=== PATIENT | female | born 1990 | race Caucasian/White ===

== ENCOUNTER → 2023-06-27 06:51 | Outpatient (REF) | payer OTHER, SELFPAY | LOC: PNTC 06:51 | PROVIDERS: ATTENDING PHYSICIAN Obstetrics & Gynecology | DX: Z36.0 Encounter for antenatal screening for chromosomal anomalies (principal); Z36.82 Encounter for antenatal screening for nuchal translucency | CPT/HCPCS: 36415; 76801; 76813 ==

== ENCOUNTER → 2023-07-23 07:01 | Outpatient (REF) | payer OTHER, SELFPAY | LOC: PNTC 07:01 | PROVIDERS: ATTENDING PHYSICIAN Obstetrics & Gynecology | DX: Z36.0 Encounter for antenatal screening for chromosomal anomalies (principal) | CPT/HCPCS: 36415 ==

== ENCOUNTER → 2023-08-15 09:19 | Outpatient (REF) | payer OTHER, SELFPAY ==
--- NOTE | 2023-08-15 09:53 | PN.DIAED06 ---
Meal Plan - Gestational
- Breakfast
Gestational Diabetes Meal Plan Name: 1800 calories
Breakfast - Total Carbohydrate (grams): 30
Breakfast - Starch Carbohydrate: 1
Breakfast - Fruit Carbohydrate: 0
Breakfast - Milk Carbohydrate: 1
Breakfast - Nonstarchy Vegetables: Yes
Breakfast - Meat/Protein: 1
Breakfast - Fat: 2
- Morning Snack
Morning Snack - Total Carbohydrate (grams): 30
Morning Snack - Starch Carbohydrate: 1
Morning Snack - Fruit Carbohydrate: 0
Morning Snack - Milk Carbohydrate: 1
Morning Snack - Nonstarchy Vegetables: Yes
Morning Snack - Meat/Protein: 0.5
Morning Snack - Fat: 0
- Lunch
Lunch - Total Carbohydrate (grams): 45
Lunch - Starch Carbohydrate: 2
Lunch - Fruit Carbohydrate: 1
Lunch - Milk Carbohydrate: 0
Lunch - Nonstarchy Vegetables: Yes
Lunch - Meat/Protein: 2
Lunch - Fat: 1
- Afternoon Snack
Afternoon Snack - Total Carbohydrate (grams): 30
Afternoon Snack - Starch Carbohydrate: 1
Afternoon Snack - Fruit Carbohydrate: 1
Afternoon Snack - Milk Carbohydrate: 0
Afternoon Snack - Nonstarchy Vegetables: Yes
Afternoon Snack - Meat/Protein: 1
Afternoon Snack - Fat: 0
- Dinner
Dinner - Total Carbohydrate (grams): 45
Dinner - Starch Carbohydrate: 2
Dinner - Fruit Carbohydrate: 0
Dinner - Milk Carbohydrate: 1
Dinner - Nonstarchy Vegetables: Yes
Dinner - Meat/Protein: 2
Dinner - Fat: 2
- Evening Snack
Evening Snack - Total Carbohydrate (grams): 30
Evening Snack - Starch Carbohydrate: 1
Evening Snack - Fruit Carbohydrate: 0
Evening Snack - Milk Carbohydrate: 1
Evening Snack - Nonstarchy Vegetables: Yes
Evening Snack - Meat/Protein: 1
Evening Snack - Fat: 1
--- NOTE | 2023-08-15 10:34 | PN.DIAED02 ---
Referral
Referred For: Gestational Diabetes Self-Management Training
PHI Release Authorization Form Signed: Yes
Care Plan
- Education Needs
Patient Education Needs: Preconception care//gestational diabetes management
Recommended Diabetes Training Program based on assessment: Gestational Diabetes Management
- Plan of Care
Plan of Care:
, EDC [birth year] sex unknown. 9 yr old son,7 yr old daughter, 4 year old daughter and 2 year old son at home. Carolyn with hx GDM with her 2 yr old son. She states she did not receive previous education.She has been having a difficult
with N/V and declined the OGTT. Discussed what is happening in her body and the importance to keep blood sugars well controlled to avoid complications (macrosomia,hypoglycemia. Here today for glucometer and nutritional instructions. Provided
with and instructions given on the One Touch Verio Flex glucometer, good return demonstration with result of 76 mg/dl 2 hr PP. She is aware of proper testing technique, to rotate sites and expected results. To test FBS (with result <95 mg/dl) and 2
hr PP every meal (with result <120 mg/dl). She will call her number into [facility] every Saturday- phone number and log sheet provided. Discussed macronutrients and effect each plays in glucose metabolism. Discussed reading
nutritional fact labels. 5' 110# pre . Provided with 1600 ernesto GDM menu (1800 ernesto-200 ernesto: lunch and dinner CHO allotment reduced to 30 gm (from 45 gm) and evening snack reduced from 30 gm to 15 gm. She is having sensitivity to food smells,
certain foods giving reflux and still with episodes of emesis. Aware to consume protein with meals/snacks.Breakfast consists of 2 good yogurt(vanilla) with either some cereal or pancake. Lunch may be a PB and J sandwich, tortilla chips w/taco
meat,cheese, dinner is currently a smoothie made w/fruit, almond mild and 2 good yogurt. She is not able to tolerate the meals that her family are eating. For now, chicken is agreeable. Snacks are generally nuts, cheese, cran-raisins,hummus and
edamame. Will add fruit after noon time. Discussed importance of exercise, she will try to incorporate into her busy day. 'Choose your foods' booklet, handout on snack options and foods high in calcium (she does not drink milk) given for reference.
Phone number provided for follow up questions. HIEU Pena to send RX to [facility] for test strips and lancet supplies.
== END ==
LOC: DES 09:19
PROVIDERS: ATTENDING PHYSICIAN Advanced Practice Midwife
DX: O24.419 Gestational diabetes mellitus in pregnancy, unspecified control (principal)
CPT/HCPCS: 99078

== ENCOUNTER → 2023-08-21 09:18 | Outpatient (REF) | payer OTHER, SELFPAY | LOC: PNTC 09:18 | PROVIDERS: ATTENDING PHYSICIAN Obstetrics & Gynecology | DX: O99.355 Diseases of the nervous system complicating the puerperium (principal) | CPT/HCPCS: 76811 ==

== ENCOUNTER → 2023-09-30 06:53 | Outpatient (REF) | payer OTHER, SELFPAY | LOC: PNTC 06:53 | PROVIDERS: ATTENDING PHYSICIAN Advanced Practice Midwife | DX: O24.419 Gestational diabetes mellitus in pregnancy, unspecified control (principal); O09.519 Supervision of elderly primigravida, unspecified trimester; O09.529 Supervision of elderly multigravida, unspecified trimester; Z36.0 Encounter for antenatal screening for chromosomal anomalies | CPT/HCPCS: 76816 ==

== ENCOUNTER → 2023-10-28 16:18 | Outpatient (REF) | payer OTHER, SELFPAY | LOC: PNTC 16:18 | PROVIDERS: ATTENDING PHYSICIAN Advanced Practice Midwife | DX: O09.519 Supervision of elderly primigravida, unspecified trimester (principal); O09.529 Supervision of elderly multigravida, unspecified trimester; Z36.0 Encounter for antenatal screening for chromosomal anomalies; O24.419 Gestational diabetes mellitus in pregnancy, unspecified control | CPT/HCPCS: 76816 ==

== ENCOUNTER → 2023-11-12 15:50 | Outpatient (REF) | payer OTHER, SELFPAY | LOC: PNTC 15:50 | PROVIDERS: ATTENDING PHYSICIAN Advanced Practice Midwife | DX: O09.519 Supervision of elderly primigravida, unspecified trimester (principal); O09.529 Supervision of elderly multigravida, unspecified trimester; Z36.0 Encounter for antenatal screening for chromosomal anomalies; O24.419 Gestational diabetes mellitus in pregnancy, unspecified control | CPT/HCPCS: 59025; 76815 ==

== ENCOUNTER → 2023-11-18 15:59 | Outpatient (REF) | payer OTHER, SELFPAY | LOC: PNTC 15:59 | PROVIDERS: ATTENDING PHYSICIAN Advanced Practice Midwife | DX: O09.519 Supervision of elderly primigravida, unspecified trimester (principal); O09.529 Supervision of elderly multigravida, unspecified trimester; Z36.0 Encounter for antenatal screening for chromosomal anomalies; O24.419 Gestational diabetes mellitus in pregnancy, unspecified control | CPT/HCPCS: 59025 ==

== ENCOUNTER → 2023-11-18 17:02 | Outpatient (REF) | payer OTHER, SELFPAY | LOC: REG 17:02 | PROVIDERS: ATTENDING PHYSICIAN Advanced Practice Midwife; FAMILY PHYSICIAN Internal Medicine | DX: O09.43 Supervision of pregnancy with grand multiparity, third trimester (principal) | CPT/HCPCS: 36415; 86850; 86870; 86900; 86901; J2790 ==

== ENCOUNTER → 2023-11-26 15:52 | Outpatient (REF) | payer OTHER, SELFPAY | LOC: PNTC 15:52 | PROVIDERS: ATTENDING PHYSICIAN Advanced Practice Midwife | DX: O09.519 Supervision of elderly primigravida, unspecified trimester (principal); O09.529 Supervision of elderly multigravida, unspecified trimester; Z36.0 Encounter for antenatal screening for chromosomal anomalies; O24.419 Gestational diabetes mellitus in pregnancy, unspecified control | CPT/HCPCS: 59025; 76816 ==

== ENCOUNTER → 2023-12-04 16:01 | Outpatient (REF) | payer OTHER, SELFPAY | LOC: PNTC 16:01 | PROVIDERS: ATTENDING PHYSICIAN Advanced Practice Midwife | DX: O09.519 Supervision of elderly primigravida, unspecified trimester (principal); O09.529 Supervision of elderly multigravida, unspecified trimester; Z36.0 Encounter for antenatal screening for chromosomal anomalies; O24.419 Gestational diabetes mellitus in pregnancy, unspecified control | CPT/HCPCS: 59025; 76815 ==

== ENCOUNTER → 2023-12-11 16:04 | Outpatient (REF) | payer OTHER, SELFPAY | LOC: PNTC 16:04 | PROVIDERS: ATTENDING PHYSICIAN Advanced Practice Midwife | DX: O09.519 Supervision of elderly primigravida, unspecified trimester (principal); O09.529 Supervision of elderly multigravida, unspecified trimester; Z36.0 Encounter for antenatal screening for chromosomal anomalies; O24.419 Gestational diabetes mellitus in pregnancy, unspecified control | CPT/HCPCS: 59025; 76815 ==

== ENCOUNTER → 2023-12-17 16:02 | Outpatient (REF) | payer OTHER, SELFPAY | LOC: PNTC 16:02 | PROVIDERS: ATTENDING PHYSICIAN Advanced Practice Midwife | DX: O09.519 Supervision of elderly primigravida, unspecified trimester (principal); O09.529 Supervision of elderly multigravida, unspecified trimester; O24.419 Gestational diabetes mellitus in pregnancy, unspecified control | CPT/HCPCS: 59025; 76815 ==

== ENCOUNTER → 2023-12-24 15:39 | Outpatient (REF) | payer OTHER, SELFPAY | LOC: PNTC 15:39 | PROVIDERS: ATTENDING PHYSICIAN Advanced Practice Midwife | DX: O09.519 Supervision of elderly primigravida, unspecified trimester (principal); O09.529 Supervision of elderly multigravida, unspecified trimester; Z36.0 Encounter for antenatal screening for chromosomal anomalies; O24.419 Gestational diabetes mellitus in pregnancy, unspecified control | CPT/HCPCS: 59025; 76816 ==

== ENCOUNTER → 2023-12-31 15:58 | Outpatient (REF) | payer OTHER, SELFPAY | LOC: PNTC 15:58 | PROVIDERS: ATTENDING PHYSICIAN Advanced Practice Midwife | DX: O09.519 Supervision of elderly primigravida, unspecified trimester (principal); O09.529 Supervision of elderly multigravida, unspecified trimester; Z36.0 Encounter for antenatal screening for chromosomal anomalies; O24.419 Gestational diabetes mellitus in pregnancy, unspecified control | CPT/HCPCS: 59025; 76815 ==

== ENCOUNTER → 2024-01-07 16:04 | Outpatient (REF) | payer OTHER, SELFPAY | LOC: PNTC 16:04 | PROVIDERS: ATTENDING PHYSICIAN Advanced Practice Midwife | DX: O09.519 Supervision of elderly primigravida, unspecified trimester (principal); O09.529 Supervision of elderly multigravida, unspecified trimester; Z36.0 Encounter for antenatal screening for chromosomal anomalies; O24.419 Gestational diabetes mellitus in pregnancy, unspecified control | CPT/HCPCS: 59025; 76815 ==

== ENCOUNTER 2024-01-08 06:13 | Inpatient (IN) | payer OTHER, SELFPAY ==
[2024-01-08 06:22] VITALS: BMI 21.5
[2024-01-08] MEDS: LR 1000 IV ×2 (07:37→08:24)
[2024-01-08 07:39] VITALS: BP 114/75
[2024-01-08 07:43] LABS: % Basophils 0.2 % (0-2); % Eosinophils 0.3 % (0-6); % Immature Granulocytes 0.8 % (0-0.5); % Lymphocytes 14.9 % (20.5-51.1); % Monocytes 5.8 % (1.7-9.3); Absolute Immature Granulocytes 0.1 10^3/uL (0-0.05); Absolute Lymphocytes 1.3 10^3/uL (1.2-3.4); Absolute Monocytes 0.5 10^3/uL (0.1-0.6); Absolute Neutrophils 6.7 10^3/uL (1.4-6.5); Hematocrit 31.1 % (37.0-47.0); Hemoglobin 10.9 g/dL (12.0-16.0); Mean Corpuscular Hgb 28.3 pg (27.0-31.0); Mean Corpuscular Volume 80.8 fL (81.0-99.0); Mean Platelet Volume 11.9 fL (7.4-10.4); Nucleated Red Blood Cells % 0 %; Platelet Count 151 10^3/uL (130-400); Red Blood Cell Count 3.85 10^6/uL (4.20-5.40); Red Cell Dist. Width 14.2 % (11.5-14.5); White Blood Cell Count 8.6 10^3/uL (4.8-10.8)
[2024-01-08] MEDS: PENICILLIN 110 UNITS IV (07:45)
[2024-01-08] MEDS: SUBLIMAZE 100 MCG EPIDURAL (07:54)
[2024-01-08] MEDS: FENTANYL/BUPIVACAINE 100 EPIDURAL (07:55)
[2024-01-08] MEDS: PITOCIN 30 UNITS/NSS 500 ML IV (08:50)
[2024-01-08] MEDS: MOTRIN 600 MG PO ×2 (14:50→20:50)
[2024-01-09] MEDS: MOTRIN 600 MG PO ×2 (04:41→11:56)
[2024-01-09 05:32] LABS: Hematocrit 31.1 % (37.0-47.0); Hemoglobin 10.5 g/dL (12.0-16.0)
[2024-01-09] MEDS: RHOGAM 300 MCG IM (11:39)
[2024-01-09] MEDS: SENOKOT-S 1 TABLET PO (11:57)
== END 2024-01-09 12:45 | disposition home or self-care (01) | DRG 807 ==
LOC: LDRP 06:13
PROVIDERS: ADMITTING PHYSICIAN Advanced Practice Midwife
PROC: 10E0XZZ Delivery of Products of Conception, External Approach (ICD-10-PCS; 2024-01-08)
DX: O48.0 Post-term pregnancy (principal); Z37.0 Single live birth; O99.284 Endocrine, nutritional and metabolic diseases complicating childbirth; E28.2 Polycystic ovarian syndrome; O99.824 Streptococcus B carrier state complicating childbirth; Z3A.40 40 weeks gestation of pregnancy; O77.0 Labor and delivery complicated by meconium in amniotic fluid
CPT/HCPCS: 85014; 85018; 85025; 85461; 86780; 86850; 86870; 86900; 86901; J2790

== ENCOUNTER 2025-04-14 16:00 | Observation (INO) | payer OTHER, SELFPAY ==
[2025-04-14 13:12] VITALS: BP 118/78
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
[2025-04-14 15:19] VITALS: BP 109/71; BMI 26.0
[2025-04-14 16:41] LABS: INR 1.11; PT 14.1 Sec (11.4-14.6)
[2025-04-14 16:42] LABS: APTT 24.8 Sec (23.4-35.0); Fibrinogen 397 MG/DL (199-459)
[2025-04-14 19:00] VITALS: BP 109/71
== END 2025-04-14 19:23 | disposition home or self-care (01) ==
LOC: LDRP 16:00
PROVIDERS: ADMITTING PHYSICIAN Advanced Practice Midwife; EMERGENCY PHYSICIAN Emergency Medicine
DX: O26.892 Other specified pregnancy related conditions, second trimester (principal); R10.9 Unspecified abdominal pain; V43.52XA Car driver injured in collision with other type car in traffic accident, initial encounter; Y93.89 Activity, other specified; Y92.410 Unspecified street and highway as the place of occurrence of the external cause; Z3A.26 26 weeks gestation of pregnancy; S39.91XA Unspecified injury of abdomen, initial encounter; J45.909 Unspecified asthma, uncomplicated; F31.9 Bipolar disorder, unspecified; O99.342 Other mental disorders complicating pregnancy, second trimester; O99.512 Diseases of the respiratory system complicating pregnancy, second trimester; R07.9 Chest pain, unspecified; R00.0 Tachycardia, unspecified; Z04.1 Encounter for examination and observation following transport accident; Z86.718 Personal history of other venous thrombosis and embolism; Z82.49 Family history of ischemic heart disease and other diseases of the circulatory system; Z88.0 Allergy status to penicillin
CPT/HCPCS: 85384; 85460; 85610; 85730; 93005; 99285; G0378

== ENCOUNTER 2025-04-16 22:48 | Emergency (ER) | payer SELFPAY ==
[2025-04-16 22:55] VITALS: BP 155/68
[2025-04-17 00:09] VITALS: BP 105/69
[2025-04-17 01:00] VITALS: BP 107/64
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
== END 2025-04-17 01:42 | disposition home or self-care (01) ==
LOC: EMR 22:48
PROVIDERS: EMERGENCY PHYSICIAN Emergency Medicine; FAMILY PHYSICIAN Internal Medicine
DX: O99.891 Other specified diseases and conditions complicating pregnancy (principal); S29.011A Strain of muscle and tendon of front wall of thorax, initial encounter; V43.52XA Car driver injured in collision with other type car in traffic accident, initial encounter; Y92.410 Unspecified street and highway as the place of occurrence of the external cause; Z3A.27 27 weeks gestation of pregnancy; Z82.49 Family history of ischemic heart disease and other diseases of the circulatory system
CPT/HCPCS: 99282

== ENCOUNTER → 2025-04-28 09:36 | Outpatient (REF) | payer OTHER, SELFPAY | LOC: PNTC 09:36 | PROVIDERS: ATTENDING PHYSICIAN Advanced Practice Midwife | DX: Z34.93 Encounter for supervision of normal pregnancy, unspecified, third trimester (principal) | CPT/HCPCS: 36415; 86850; 86870; 86900; 86901; J2790 ==